=== PATIENT | male | born 1970 | race Two or more races ===

== ENCOUNTER 2018-05-22 17:06 | Inpatient (IN) | payer OTHER ==
[2018-05-22 17:30] VITALS: BMI 32.1
--- NOTE | 2018-05-22 18:41 | HP ---
"COWS - Scale Resting Pulse: 0= [place] 80 or Below Sweatin=Flushed/Facial Moisture Restless Observation: 1= Difficult to Sit Still Pupil Size: 2= Moderately Dilated (at 4 mm) Bone or Joint Aches: 1= Mild Discomfort Runny Nose/ Eye Tearin= Runny Nose/Eyes GI Upset > 30mins: 2= Nausea/Diarrhea (No diarrhea) Tremor Observation: 2= Slight Tremor Visible Yawning Observation: 0= None Anxiety or Irritability: 1=Feels Anxious/Irritable Goose Flesh Skin: 0=Smooth Skin COWS Score: 13 Admission [facility] Chief Complaint: Here for c/o heroin withdrawal. Allergies/Adverse Reactions: Allergies Allergy/AdvReac Type Severity Reaction Status Date / Time No Known Allergies Allergy Verified 06/09/12 15:02 History of Present Illness: 48 yom w/ hx heroin dependency since age 15. Has been using heroin IV. States had only 1 swig of methadone 3 days ago and is not on an opioid tx. program. Last methadone program 10 years ago. Hx. cocaine use since age 15. Currently uses cocaine IV w/ the heroin. States THC since age 13. Denies benzo use. Hx 3 overdoses in 90's. Denies anything recent. Drinks beer since age 17. States not a big drinker and denies an alcohol problem. Denies any blackouts or seizures. Has been able to maintain 1-2 yrs of sobriety in . Wants to go to rehab after detox. Denies significant pmh. Hx depression but denies thoughts of harming self or others. Search Terms: Domenic Nair, 1970 Search Date: 05/22/2018 06:57:38 PM The Drug Utilization Report below displays all of the controlled substance prescriptions, if any, that your patient has filled in the last twelve months. The information displayed on this report is compiled from pharmacy submissions to the Department, and accurately reflects the information as submitted by the pharmacies. This report was requested by: Adela Benitez | Reference #: [id number] There are no results for the search terms that you entered. Exam Limitations: No Limitations - Ebola screening Have you traveled outside of the country in the last 21 days: No Have you had contact with anyone from an Ebola affected area: No Have you been sick,other than usual withdrawal symptoms: No Do you have a fever: No - Review of Systems Constitutional: Changes in sleep (Difficulty staying asleep) EENT: reports: Nose Congestion Respiratory: reports: No Symptoms reported Cardiac: reports: No Symptoms Reported GI: reports: Constipated (Firm and brown, not associated w/ blood. Can have a delayed BM every 2-3 days. Last BM yesterday.) : reports: No Symptoms Reported Musculoskeletal: reports: Back Pain (Chronic LBP x 2 years. States increases w/ bending and improves w/ rest/laying down.) Integumentary: reports: Sweating Neuro: reports: No Symptoms reported Endocrine: reports: No Symptoms Reported Hematology: reports: No Symptoms Reported Psychiatric: reports: Judgement Intact, Orientated x3, Agitated, Anxious, Depressed (Denies thoughts of harming self) Patient History - Patient Medical History Hx Anemia: No Hx Asthma: No Hx Chronic Obstructive Pulmonary Disease (COPD): No Hx Cancer: No Hx Cardiac Disorders: No Hx Congestive Heart Failure: No Hx Hypertension: No Hx Hypercholesterolemia: No Hx Pacemaker: No HX Cerebrovascular Accident: No Hx Seizures: No Hx Dementia: No Hx Diabetes: No Hx Gastrointestinal Disorders: No Hx Liver Disease: No Hx Genitourinary Disorders: No Hx Sexually Transmitted Disorders: No Hx Renal Disease (ESRD): No Hx Thyroid Disease: No Hx Human Immunodeficiency Virus (HIV): No Hx Hepatitis C: Yes (No medical tx. ) Hx Depression: Yes (Denies suicide or violent ideation. No meds. ) Hx Suicide Attempt: No Hx Bipolar Disorder: No Hx Schizophrenia: No - Patient Surgical History Past Surgical History: No Hx Neurologic Surgery: No Hx Cataract Extraction: No Hx Cardiac Surgery: No Hx Lung Surgery: No Hx Breast Surgery: No Hx Breast Biopsy: No Hx Abdominal Surgery: No Hx Appendectomy: No Hx Cholecystectomy: No Hx Genitourinary Surgery: No Hx Section: No Hx Orthopedic Surgery: No Anesthesia Reaction: No - PPD History Previous Implant?: Yes Documented Results: Negative w/o proof Implanted On Prior [facility] Admission?: Yes PPD to be Administered?: Yes - Smoking Cessation Smoking history: Current every day smoker Have you smoked in the past 12 months: Yes Aproximately how many cigarettes per day: 10 Hx Chewing Tobacco Use: No Initiated information on smoking cessation: Yes 'Breaking Loose' booklet given: 05/22/18 - Substance & Tx. History Hx Alcohol Use: Yes - Substances Abused Heroin Route: Injection (IV) Frequency: Daily Amount used: 5-6 bags Age of first use: 15 Date of Last Use: 05/22/18 Cocaine Route: Injection (IV w/ heroin) Frequency: Daily Amount used: $100 Age of first use: 15 Date of Last Use: 05/22/18 Marijuana/Hashish Route: Smoking Frequency: Daily Amount used: $10 Age of first use: 13 Date of Last Use: 05/20/18 Alcohol Route: Oral Frequency: 3-6 times per week Amount used: 3 - 24 oz beers Age of first use: 16 Date of Last Use: 05/21/18 ( 2 beers) Family Disease History - Family Disease History Family History: Unremarkable Admission Physical Exam [facility] - Vital Signs Vital Signs: Vital Signs - 24 hr 05/22/18 17:26 Temperature 98.9 F Pulse Rate 74 Respiratory 18 Rate Blood Pressure 137/94 - Physical General Appearance: Yes: Mild Distress, Tremorous, Irritable, Anxious HEENTM: Yes: EOMI, Hearing grossly Normal, Normocephalic, Normal Voice, [place] (P = 4 mm), Rhinorrhea (Clear drip) Respiratory: Yes: Chest Non-Tender, Lungs Clear, Normal Breath Sounds, No Respiratory Distress Neck: Yes: No masses,lesions,Nodules, Supple Breast: Yes: Breast Exam Deferred Cardiology: Yes: Regular Rhythm, Regular Rate, S1, S2 Abdominal: Yes: Normal Bowel Sounds, Non Tender, Flat, Soft Genitourinary: Yes: Within Normal Limits Back: Yes: Normal Inspection Musculoskeletal: Yes: full range of Motion, Gait Steady Extremities: Yes: Normal Capillary Refill, Normal Range of Motion, Non-Tender, Tremors (of hands on extension), Swelling (BLE edema - mild ankles to mid-calf. 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 No increased warmth or erythema at sites.) - Diagnostic (1) Opioid dependence with withdrawal Current Visit: Yes Status: Acute (2) Bilateral edema of lower extremity Current Visit: Yes Status: Acute (3) Nicotine dependence with withdrawal Current Visit: Yes Status: Acute Qualifiers: Nicotine product type: cigarettes Qualified Code(s): F17.213 - Nicotine dependence, cigarettes, with withdrawal (4) Cannabis dependence Current Visit: Yes Status: Chronic (5) Alcohol use disorder, mild, abuse Current Visit: Yes Status: Chronic (6) Cocaine dependence Current Visit: Yes Status: Active (7) Low back pain Current Visit: Yes Status: Chronic Qualifiers: Chronicity: chronic Back pain laterality: unspecified Sciatica presence: without sciatica Qualified Code(s): M54.5 - Low back pain; G89.29 - Other chronic pain Cleared for Admission [facility] - Detox or Rehab Detox Regimen/Protocol: Methadone [facility] Breath Alcohol Content Breath Alcohol Content: 0 Urine Drug Screen - Results Drug Screen Negative: No Urine Drug Screen Results: THC-Marijuana, JOSELITO-Cocaine, OPI-Opiates, BZO- Benzodiazepines, MTD-Methadone"
[2018-05-22] MEDS ORDERED: ACETAMINOPHEN 325 MG TABLET (FP) PO PRN (19:10)
[2018-05-22] MEDS ORDERED: MENTHOL/PHENOL 1 EACH UD MM PRN (19:10)
[2018-05-22] MEDS ORDERED: MAG HYDROX/AL HYDROX/SIMETH 30 ML UNIT-DOSE CUP PO PRN (19:10)
[2018-05-22] MEDS ORDERED: guaiFENesin/D-METHORPHAN HB 10 ML UNIT-DOSE CUPS PO PRN (19:10)
[2018-05-22] MEDS ORDERED: P-EPHED 60MG/TRIPROLIDI 2.5MG TABLET PO PRN (19:10)
[2018-05-22] MEDS ORDERED: MAGNESIUM CITRATE 300 ML BOTTLE PO PRN (19:10)
[2018-05-22] MEDS ORDERED: LOPERAMIDE HCL 2 MG CAPSULE PO PRN (19:10)
[2018-05-22] MEDS ORDERED: hydrOXYzine PAMOATE 50 MG CAPSULE (FP) PO PRN (19:10)
[2018-05-22] MEDS ORDERED: MAGNESIUM HYDROX 2400MG/30ML ORAL SUSPENSION 30 ML CUP PO PRN (19:10)
[2018-05-22] MEDS ORDERED: IBUPROFEN 400 MG TABLET (FP) PO PRN (19:10)
[2018-05-22] MEDS ORDERED: NICOTINE POLACRILEX 2 MG GUM BUC PRN (19:10)
[2018-05-22] MEDS ORDERED: METHADONE HCL 10 MG TABLET (FOR DETOX USE ONLY) PO ONE ×2 (19:30→23:00)
[2018-05-22] MEDS: diazePAM 5 MG TABLET PO PRN (19:46)
[2018-05-22] MEDS: THIAMINE HCL 100 MG TABLET (FP) PO SCH (22:18)
[2018-05-22] MEDS: MELATONIN 5 MG TABLETS PO PRN (22:19)
[2018-05-23 00:05] LABS: URINE APPEARANCE CLEAR; URINE BILIRUBIN NEGATIVE (<2.0 mg/dL); URINE COLOR AMBER; URINE GLUCOSE (UA) NEGATIVE (NEGATIVE); URINE KETONE NEGATIVE (NEGATIVE); URINE LEUK ESTERASE NEGATIVE (NEGATIVE); URINE NITRITE NEGATIVE (NEGATIVE); URINE PROTEIN NEGATIVE (NEGATIVE); URINE UROBILINOGEN 4.0 E.U/dl mg/dL (0.2-1.0)
[2018-05-23] MEDS ORDERED: METHADONE HCL 10 MG TABLET (FOR DETOX USE ONLY) PO ONE (10:00)
[2018-05-23 10:08] LABS: HEMOGLOBIN 13.8 GM/dL (11.7-16.9); MCH 32.4 pg (25.7-33.7); MCHC 35.4 g/dl (32.0-35.9); MEAN CELL VOLUME 91.6 fl (80-96); MEAN PLT VOLUME 9.6 fl (7.5-11.1); PLATELET COUNT 78 K/MM3 (134-434); RBC 4.25 M/mm3 (4.00-5.60); RDW 13.5 % (11.9-15.9); WHITE BLOOD COUNT 3.3 K/mm3 (4.0-10.0)
[2018-05-23] MEDS: PRENATAL VITAMINS W/ FOLIC ACID TABLET (FP) PO SCH (10:17)
[2018-05-23] MEDS: NICOTINE 21 MG/24 HOURS TOPICAL PATCH TD SCH (10:17)
[2018-05-23 10:48] LABS: ALBUMIN 3.1 g/dl (3.4-5.0); ANION GAP 7 (8-16); BLOOD UREA NITROGEN 12 mg/dL (7-18); CALCIUM 8.3 mg/dL (8.5-10.1); CHLORIDE 105 mmol/L (98-107); CO2 27 mmol/L (21-32); GLUCOSE,RANDOM 90 mg/dL (74-106); POTASSIUM 3.8 mmol/L (3.5-5.1); SODIUM 139 mmol/L (136-145)
[2018-05-23 10:55] LABS: ALK PHOS 80 U/L (45-117); BILIRUBIN,TOTAL 1.1 mg/dL (0.2-1.0); CREATININE 0.7 mg/dL (0.7-1.3); SGOT/AST 84 U/L (15-37); SGPT/ALT 74 U/L (12-78)
--- NOTE | 2018-05-23 12:08 | EKG ---
Test Reason : Blood Pressure : / mmHG Vent. Rate : 062 BPM Atrial Rate : 062 BPM P-R Int : 144 ms QRS Dur : 092 ms QT Int : 436 ms P-R-T Axes : 023 -21 001 degrees QTc Int : 442 ms NORMAL SINUS RHYTHM MODERATE VOLTAGE CRITERIA FOR LVH, MAY BE NORMAL VARIANT BORDERLINE ECG Confirmed by MD KYLEE, DANGELO ([id number]) on 05/23/2018 12:08:24 PM Referred By: Confirmed By:DANGELO PICHARDO MD
--- NOTE | 2018-05-23 12:09 | EKG ---
Test Reason : Blood Pressure : / mmHG Vent. Rate : 064 BPM Atrial Rate : 064 BPM P-R Int : 142 ms QRS Dur : 086 ms QT Int : 416 ms P-R-T Axes : 007 -20 015 degrees QTc Int : 429 ms NORMAL SINUS RHYTHM VOLTAGE CRITERIA FOR LEFT VENTRICULAR HYPERTROPHY CANNOT RULE OUT SEPTAL INFARCT , AGE UNDETERMINED ABNORMAL ECG Confirmed by MD KYLEE, DANGELO ([id number]) on 05/23/2018 12:09:05 PM Referred By: Confirmed By:DANGELO PICHARDO MD
--- NOTE | 2018-05-23 12:11 | PN ---
[facility] COWS - Scale Resting Pulse: 0= [place] 80 or Below Sweatin= Chills/Flushing Restless Observation: 3= Extraneous Movement Pupil Size: 2= Moderately Dilated Bone or Joint Aches: 1= Mild Discomfort Runny Nose/ Eye Tearin= None GI Upset > 30mins: 0= None Tremor Observation of Outstretched Hands: 1= Tremor [place], Not Seen Yawning Observation: 2= >3x During Session Anxiety or Irritability: 2=Irritable/Anxious Goose Flesh Skin: 0=Smooth Skin COWS Score: 12 S Progress Note (SOAP) Subjective: ANXIETY.IRRITABILITY,INTERMITTENT SLEEP. Objective: 05/23/18 12:11 Vital Signs 05/23/18 05/23/18 05/23/18 06:11 06:30 09:28 Temperature 97.5 F L 97.3 F L Pulse Rate 61 62 Respiratory 18 18 18 Rate Blood Pressure 106/62 105/66 Laboratory Tests 05/22/18 05/23/18 05/23/18 23:50 07:15 07:15 WBC 3.3 L RBC 4.25 Hgb 13.8 Hct 39.0 MCV 91.6 MCH 32.4 MCHC 35.4 RDW 13.5 Plt Count 78 L MPV 9.6 Sodium 139 Potassium 3.8 Chloride 105 Carbon Dioxide 27 Anion Gap 7 L BUN 12 Creatinine 0.7 Creat Clearance w eGFR > 60 Random Glucose 90 Calcium 8.3 L Total Bilirubin 1.1 H AST 84 H ALT 74 D Alkaline Phosphatase 80 Total Protein 7.0 Albumin 3.1 L Urine Color Cherry Urine Appearance Clear Urine pH 6.0 Ur Specific [place] [employer] [place] 1.023 Urine Protein Negative Urine Glucose (UA) Negative Urine Ketones Negative Urine Blood Negative Urine Nitrite Negative Urine Bilirubin Negative Urine Urobilinogen 4.0 e.u/dl Ur Leukocyte Esterase Negative Assessment: 05/23/18 12:11 WITHDRAWAL SX Plan: CONTINUE DETOX
--- NOTE | 2018-05-23 18:27 | CONSULT ---
[facility] Psychiatric Consult - Data Date of interview: 05/23/18 Admission source: [facility] Identifying data: Readmission to [facility] for this 48 y/o male seeking detox treatment on for alcohol,cannabis,heroin and cocaine dependence.Patient is single,a father of one,undomiciled,unemployed and currently supported on Public Assistance. Substance Abuse History: Confirmed by patient in this session.Smoking history: Current every day smoker. Have you smoked in the past 12 months: Yes. Aproximately how many cigarettes per day: 10. Hx Chewing Tobacco Use: No. Initiated information on smoking cessation: Yes. 'Breaking Loose' booklet given : 05/22/18. - Substance & Tx. History. Hx Alcohol Use: Yes. - Substances Abused. Heroin. Route: Injection (IV). Frequency: Daily. Amount used: 5- 6 bags. Age of first use: 15. Date of Last Use: 05/22/18. Cocaine. Route : Injection (IV w/ heroin). Frequency: Daily. Amount used: $100. Age of first use: 15. Date of Last Use: 05/22/18. Marijuana/Hashish. Route: Smoking. Frequency: Daily. Amount used: $10. Age of first use: 13. Date of Last Use: 05/20/18. Alcohol. Route: Oral. Frequency: 3-6 times per week. Amount used: 3 - 24 oz beers. Age of first use: 16. Date of Last Use: ( 2 beers) Medical History: Hepatitis C and chronic lumbar pain. Psychiatric History: Patient denies. Physical/Sexual Abuse/Trauma History: No reported history of abuse. Additional Comment: Urine Drug Screen Results: THC-Marijuana, JOSELITO-Cocaine, OPI- Opiates, BZO-Benzodiazepines, MTD-Methadone.Noted. Mental Status Exam - Mental Status Exam Alert and Oriented to: Time, Place, Person Cognitive Function: Good Patient Appearance: Well Groomed (tattoos on arms) Mood: Hopeful, Euthymic Affect: Appropriate, Normal Range Patient Behavior: Appropriate, Cooperative Speech Pattern: Clear, Appropriate Voice Loudness: Normal Thought Process: Intact, Goal Oriented Thought Disorder: Not Present Hallucinations: Denies Suicidal Ideation: Denies Homicidal Ideation: Denies Insight/Judgement: Poor Sleep: Well Appetite: Good Muscle strength/Tone: Normal Gait/Station: Normal Psychiatric Findings - Problem List ([place] 1, 2,3) (1) Opioid dependence with withdrawal Current Visit: Yes Status: Acute (2) Alcohol use disorder, mild, abuse Current Visit: Yes Status: Acute (3) Cocaine dependence Current Visit: Yes Status: Active (4) Cannabis dependence Current Visit: Yes Status: Acute (5) Nicotine dependence with withdrawal Current Visit: Yes Status: Acute Qualifiers: Nicotine product type: cigarettes Qualified Code(s): F17.213 - Nicotine dependence, cigarettes, with withdrawal (6) Insomnia Current Visit: Yes Status: Acute - Initial Treatment Plan Initial Treatment Plan: Psychoeducation.Sleep hygiene.Detoxification.Insomnia is addressed with melatonin 5 mg po hs prn.Side effects/benefits discussed with the patient.Mr Nair agrees to this careplan.Observation.
[2018-05-23] MEDS: diazePAM 5 MG TABLET PO PRN (18:43)
[2018-05-23] MEDS: THIAMINE HCL 100 MG TABLET (FP) PO SCH (22:19)
[2018-05-23] MEDS: MELATONIN 5 MG TABLETS PO PRN (22:19)
[2018-05-24] MEDS ORDERED: METHADONE HCL 5 MG TABLET (FOR DETOX USE ONLY) PO ONE (10:00)
[2018-05-24] MEDS: diazePAM 5 MG TABLET PO PRN ×2 (10:22→21:24)
[2018-05-24] MEDS: PRENATAL VITAMINS W/ FOLIC ACID TABLET (FP) PO SCH (10:22)
[2018-05-24] MEDS: NICOTINE 21 MG/24 HOURS TOPICAL PATCH TD SCH (10:22)
--- NOTE | 2018-05-24 10:35 | PN ---
S COWS - Scale Resting Pulse: 0= [place] 80 or Below Sweatin= Chills/Flushing Restless Observation: 3= Extraneous Movement Pupil Size: 0= Normal to Room Light Bone or Joint Aches: 4=Acute Joint/Muscle Pain Runny Nose/ Eye Tearin= None GI Upset > 30mins: 0= None Tremor Observation of Outstretched Hands: 1= Tremor [place], Not Seen Yawning Observation: 1= 1-2x During Session Anxiety or Irritability: 2=Irritable/Anxious Goose Flesh Skin: 0=Smooth Skin COWS Score: 12 S Progress Note (SOAP) Subjective: ANXIETY, SWEATS,BACK ACHE. STATES WILL ASK FOR MOTRIN WHEN NEEDED. Objective: 05/24/18 10:34 Vital Signs 05/24/18 05/24/18 05/24/18 03:30 06:12 09:30 Temperature 97 F L 97.1 F L Pulse Rate 56 L 66 Respiratory 18 18 20 Rate Blood Pressure 104/59 128/90 Laboratory Tests 05/22/18 05/23/18 05/23/18 23:50 07:15 07:15 WBC 3.3 L RBC 4.25 Hgb 13.8 Hct 39.0 MCV 91.6 MCH 32.4 MCHC 35.4 RDW 13.5 Plt Count 78 L MPV 9.6 Sodium 139 Potassium 3.8 Chloride 105 Carbon Dioxide 27 Anion Gap 7 L BUN 12 Creatinine 0.7 Creat Clearance w eGFR > 60 Random Glucose 90 Calcium 8.3 L Total Bilirubin 1.1 H AST 84 H ALT 74 D Alkaline Phosphatase 80 Total Protein 7.0 Albumin 3.1 L Urine Color Cherry Urine Appearance Clear Urine pH 6.0 Ur Specific [place] 1.023 Urine Protein Negative Urine Glucose (UA) Negative Urine Ketones Negative Urine Blood Negative Urine Nitrite Negative Urine Bilirubin Negative Urine Urobilinogen 4.0 e.u/dl Ur Leukocyte Esterase Negative Assessment: 05/24/18 10:34 WITHDRAWAL SX Plan: CONTINUE DETOX MOTRIN OR TYLENOL PRN
[2018-05-24] MEDS: MELATONIN 5 MG TABLETS PO PRN (22:24)
[2018-05-24] MEDS: THIAMINE HCL 100 MG TABLET (FP) PO SCH (22:24)
[2018-05-25] MEDS: diazePAM 5 MG TABLET PO PRN ×2 (09:22→17:21)
[2018-05-25] MEDS ORDERED: METHADONE HCL 5 MG TABLET (FOR DETOX USE ONLY) PO ONE (10:00)
[2018-05-25] MEDS: PRENATAL VITAMINS W/ FOLIC ACID TABLET (FP) PO SCH (10:33)
[2018-05-25] MEDS: NICOTINE 21 MG/24 HOURS TOPICAL PATCH TD SCH (10:34)
--- NOTE | 2018-05-25 10:54 | PN ---
[facility] Progress Note (SOAP) Subjective: SLIGHT ANXIETY, BACK PAIN, OOB AMBULATING WITH STEADY GAIT. Objective: 05/25/18 10:53 Vital Signs 05/25/18 05/25/18 05/25/18 03:30 06:20 09:36 Temperature 97.7 F 97.7 F Pulse Rate 56 L 72 Respiratory 18 18 18 Rate Blood Pressure 106/65 132/87 Laboratory Tests 05/22/18 05/23/18 05/23/18 23:50 07:15 07:15 WBC 3.3 L RBC 4.25 Hgb 13.8 Hct 39.0 MCV 91.6 MCH 32.4 MCHC 35.4 RDW 13.5 Plt Count 78 L MPV 9.6 Sodium 139 Potassium 3.8 Chloride 105 Carbon Dioxide 27 Anion Gap 7 L BUN 12 Creatinine 0.7 Creat Clearance w eGFR > 60 Random Glucose 90 Calcium 8.3 L Total Bilirubin 1.1 H AST 84 H ALT 74 D Alkaline Phosphatase 80 Total Protein 7.0 Albumin 3.1 L Urine Color Cherry Urine Appearance Clear Urine pH 6.0 Ur Specific [place] 1.023 Urine Protein Negative Urine Glucose (UA) Negative Urine Ketones Negative Urine Blood Negative Urine Nitrite Negative Urine Bilirubin Negative Urine Urobilinogen 4.0 e.u/dl Ur Leukocyte Esterase Negative RPR Titer 05/23/18 07:15 WBC RBC Hgb Hct MCV MCH MCHC RDW Plt Count MPV Sodium Potassium Chloride Carbon Dioxide Anion Gap BUN Creatinine Creat Clearance w eGFR Random Glucose Calcium Total Bilirubin AST ALT Alkaline Phosphatase Total Protein Albumin Urine Color Urine Appearance Urine pH Ur Specific [place] Urine Protein Urine Glucose (UA) Urine Ketones Urine Blood Urine Nitrite Urine Bilirubin Urine Urobilinogen Ur Leukocyte Esterase RPR Titer Nonreactive Assessment: 05/25/18 10:53 WITHDRAWAL SX Plan: CONTINUE DETOX MOTRIN PRN
[2018-05-25] MEDS: THIAMINE HCL 100 MG TABLET (FP) PO SCH (22:20)
[2018-05-25] MEDS: MELATONIN 5 MG TABLETS PO PRN (22:20)
[2018-05-26] MEDS ORDERED: METHADONE HCL 10 MG TABLET (FOR DETOX USE ONLY) PO ONE (10:00)
[2018-05-26] MEDS: PRENATAL VITAMINS W/ FOLIC ACID TABLET (FP) PO SCH (10:26)
[2018-05-26] MEDS: NICOTINE 21 MG/24 HOURS TOPICAL PATCH TD SCH (10:26)
--- NOTE | 2018-05-26 12:39 | PN ---
[facility] Progress Note (SOAP) Subjective: SLIGHT ANXIETY,SWEATS. REPORTS DETOX PROCEEDING WELL, OOB WITH STEADY GAIT. Objective: 05/26/18 12:38 Vital Signs 05/26/18 05/26/18 06:30 09:51 Temperature 97.0 F L 97.9 F Pulse Rate 65 67 Respiratory 18 18 Rate Blood Pressure 115/77 129/85 Laboratory Tests 05/22/18 05/23/18 05/23/18 23:50 07:15 07:15 WBC 3.3 L RBC 4.25 Hgb 13.8 Hct 39.0 MCV 91.6 MCH 32.4 MCHC 35.4 RDW 13.5 Plt Count 78 L MPV 9.6 Sodium 139 Potassium 3.8 Chloride 105 Carbon Dioxide 27 Anion Gap 7 L BUN 12 Creatinine 0.7 Creat Clearance w eGFR > 60 Random Glucose 90 Calcium 8.3 L Total Bilirubin 1.1 H AST 84 H ALT 74 D Alkaline Phosphatase 80 Total Protein 7.0 Albumin 3.1 L Urine Color Cherry Urine Appearance Clear Urine pH 6.0 Ur Specific [place] 1.023 Urine Protein Negative Urine Glucose (UA) Negative Urine Ketones Negative Urine Blood Negative Urine Nitrite Negative Urine Bilirubin Negative Urine Urobilinogen 4.0 e.u/dl Ur Leukocyte Esterase Negative RPR Titer 05/23/18 07:15 WBC RBC Hgb Hct MCV MCH MCHC RDW Plt Count MPV Sodium Potassium Chloride Carbon Dioxide Anion Gap BUN Creatinine Creat Clearance w eGFR Random Glucose Calcium Total Bilirubin AST ALT Alkaline Phosphatase Total Protein Albumin Urine Color Urine Appearance Urine pH Ur Specific [place] Urine Protein Urine Glucose (UA) Urine Ketones Urine Blood Urine Nitrite Urine Bilirubin Urine Urobilinogen Ur Leukocyte Esterase RPR Titer Nonreactive Assessment: 05/26/18 12:39 WITHDRAWAL SX Plan: CONTINUE DETOX
[2018-05-26] MEDS: THIAMINE HCL 100 MG TABLET (FP) PO SCH (22:15)
[2018-05-26] MEDS: MELATONIN 5 MG TABLETS PO PRN (22:15)
[2018-05-27] MEDS ORDERED: METHADONE HCL 5 MG TABLET (FOR DETOX USE ONLY) PO ONE (06:00)
[2018-05-27 06:18] VITALS: BP 118/75; PULSE 59; TEMP 97.1
--- NOTE | 2018-05-27 19:49 | PN ---
[facility] Progress Note (SOAP) Subjective: Patient denies current Detox symptoms and reports that he feels well overall. Objective: PATIENT A & O X 3, OBSERVED AMBULATING ON UNIT. NO ACUTE DISTRESS. 05/27/18 19:49 Vital Signs Temperature 97.1 F L 05/27/18 06:18 Pulse Rate 59 L 05/27/18 06:18 Respiratory Rate 18 05/27/18 06:18 Blood Pressure 118/75 05/27/18 06:18 O2 Sat by Pulse Oximetry (%) Laboratory Tests 05/22/18 05/23/18 05/23/18 23:50 07:15 07:15 WBC 3.3 L RBC 4.25 Hgb 13.8 Hct 39.0 MCV 91.6 MCH 32.4 MCHC 35.4 RDW 13.5 Plt Count 78 L MPV 9.6 Sodium 139 Potassium 3.8 Chloride 105 Carbon Dioxide 27 Anion Gap 7 L BUN 12 Creatinine 0.7 Creat Clearance w eGFR > 60 Random Glucose 90 Calcium 8.3 L Total Bilirubin 1.1 H AST 84 H ALT 74 D Alkaline Phosphatase 80 Total Protein 7.0 Albumin 3.1 L Urine Color [place] Urine Appearance Clear Urine pH 6.0 Ur Specific [place] 1.023 Urine Protein Negative Urine Glucose (UA) Negative Urine Ketones Negative Urine Blood Negative Urine Nitrite Negative Urine Bilirubin Negative Urine Urobilinogen 4.0 e.u/dl Ur Leukocyte Esterase Negative RPR Titer 05/23/18 07:15 WBC RBC Hgb Hct MCV MCH MCHC RDW Plt Count MPV Sodium Potassium Chloride Carbon Dioxide Anion Gap BUN Creatinine Creat Clearance w eGFR Random Glucose Calcium Total Bilirubin AST ALT Alkaline Phosphatase Total Protein Albumin Urine Color Urine Appearance Urine pH Ur Specific [place] Urine Protein Urine Glucose (UA) Urine Ketones Urine Blood Urine Nitrite Urine Bilirubin Urine Urobilinogen Ur Leukocyte Esterase RPR Titer Nonreactive LABS NOTED. Assessment: 05/27/18 19:49 COMPLETION OF DETOX REGIMEN. Plan: PATIENT SCHEDULED FOR DISCHARGE FROM DETOX UNIT TODAY.
--- NOTE | 2018-05-27 19:53 | DS ---
[facility] Detox Discharge Summary Admission Date: 05/22/18 Discharge Date: 05/27/18 - History Present History: Alcohol Dependence, Cocaine Dependence, Opioid Dependence Additional Comments: PATIENT GONIG TO [facility] (DAVID NOdilia) FOR AFTERCARE. PATIENT DISCHARGED FROM DETOX UNIT IN STABLE MEDICAL CONDITION. Pertinent Past History: Hep C, Depression, Nicotine Dependence, Bilateral Edema of Lower Extremities, Insomnia. - Physical Exam Results Vital Signs: Vital Signs Temperature 97.1 F L 05/27/18 06:18 Pulse Rate 59 L 05/27/18 06:18 Respiratory Rate 18 05/27/18 06:18 Blood Pressure 118/75 05/27/18 06:18 O2 Sat by Pulse Oximetry (%) Pertinent Admission Physical Exam Findings: WITHDRAWAL SYMPTOMS. Laboratory Tests 05/22/18 05/23/18 05/23/18 23:50 07:15 07:15 WBC 3.3 L RBC 4.25 Hgb 13.8 Hct 39.0 MCV 91.6 MCH 32.4 MCHC 35.4 RDW 13.5 Plt Count 78 L MPV 9.6 Sodium 139 Potassium 3.8 Chloride 105 Carbon Dioxide 27 Anion Gap 7 L BUN 12 Creatinine 0.7 Creat Clearance w eGFR > 60 Random Glucose 90 Calcium 8.3 L Total Bilirubin 1.1 H AST 84 H ALT 74 D Alkaline Phosphatase 80 Total Protein 7.0 Albumin 3.1 L Urine Color [place] Urine Appearance Clear Urine pH 6.0 Ur Specific [place] 1.023 Urine Protein Negative Urine Glucose (UA) Negative Urine Ketones Negative Urine Blood Negative Urine Nitrite Negative Urine Bilirubin Negative Urine Urobilinogen 4.0 e.u/dl Ur Leukocyte Esterase Negative RPR Titer 05/23/18 07:15 WBC RBC Hgb Hct MCV MCH MCHC RDW Plt Count MPV Sodium Potassium Chloride Carbon Dioxide Anion Gap BUN Creatinine Creat Clearance w eGFR Random Glucose Calcium Total Bilirubin AST ALT Alkaline Phosphatase Total Protein Albumin Urine Color Urine Appearance Urine pH Ur Specific [place] Urine Protein Urine Glucose (UA) Urine Ketones Urine Blood Urine Nitrite Urine Bilirubin Urine Urobilinogen Ur Leukocyte Esterase RPR Titer Nonreactive LABS NOTED. - Treatment Hospital Course: Detox Protocol Followed, Detoxed Safely, Responded well, Discharged Condition Good, Rehab Referral Accepted Patient has Accepted a Rehab Referral to: [facility] (DA[facility] NOdilia). - Medication Discharge Medications: Ambulatory Orders NK [No Known Home Medication] 05/22/18 - Diagnosis (1) Alcohol use disorder, mild, abuse Status: Acute (2) Bilateral edema of lower extremity Status: Acute (3) Cocaine dependence, uncomplicated Status: Acute (4) Hepatitis C carrier Status: Acute (5) Nicotine dependence with withdrawal Status: Acute Qualifiers: Nicotine product type: cigarettes Qualified Code(s): F17.213 - Nicotine dependence, cigarettes, with withdrawal (6) Opioid dependence with withdrawal Status: Acute (7) Low back pain Status: Chronic Qualifiers: Chronicity: chronic Back pain laterality: unspecified Sciatica presence: without sciatica Qualified Code(s): M54.5 - Low back pain; G89.29 - Other chronic pain (8) Cannabis dependence Status: Acute (9) Insomnia Status: Acute Qualifiers: Insomnia type: unspecified Qualified Code(s): G47.00 - Insomnia, unspecified - AMA Did Patient Leave Against Medical Advice: No
== END 2018-05-27 09:14 | disposition other institution (70) | DRG 773 ==
LOC: YASAS 17:06 → Y3N 18:09
PROVIDERS: ADMIT Surgery; ATTEND Surgery
PROC: HZ2ZZZZ Detoxification Services for Substance Abuse Treatment (ICD-10-PCS; principal; 2018-05-22)
DX: F11.23 Opioid dependence with withdrawal (principal); F10.10 Alcohol abuse, uncomplicated; F14.20 Cocaine dependence, uncomplicated; F12.20 Cannabis dependence, uncomplicated; F17.213 Nicotine dependence, cigarettes, with withdrawal; F32.9 Major depressive disorder, single episode, unspecified; G47.00 Insomnia, unspecified; M54.5 Low back pain; G89.29 Other chronic pain; B18.2 Chronic viral hepatitis C; R60.0 Localized edema
CPT/HCPCS: 36415; 80053; 81003; 85027; 86593; 93005; 93010

== ENCOUNTER 2018-07-10 10:23 | Inpatient (IN) | payer OTHER ==
[2018-07-10 10:48] VITALS: BMI 30.5
--- NOTE | 2018-07-10 13:49 | HP ---
COWS - Scale Resting Pulse: 0= [place] 80 or Below Sweatin=Flushed/Facial Moisture Restless Observation: 1= Difficult to Sit Still Pupil Size: 1= Pupils >than Normal Bone or Joint Aches: 2= Severe Diffuse Aches Runny Nose/ Eye Tearin= Nasal Congestion GI Upset > 30mins: 1= Stomach Cramp Tremor Observation: 1= Tremor [place], Not Seen Yawning Observation: 1= 1-2x During Session Anxiety or Irritability: 1=Feels Anxious/Irritable Goose Flesh Skin: 0=Smooth Skin COWS Score: 11 Admission ROS BHS - HPI Chief Complaint: I need to stop using heroin , relapsed recently and want to stop. Allergies/Adverse Reactions: Allergies Allergy/AdvReac Type Severity Reaction Status Date / Time No Known Allergies Allergy Verified 07/10/18 13:19 History of Present Illness: 48 y/o m pt wth h/o opioid dep since age 15 . Pt was drug free x 7 years until 2 months ago when he relapse . Exam Limitations: No Limitations - Ebola screening Have you traveled outside of the country in the last 21 days: No (N) Have you had contact with anyone from an Ebola affected area: No Have you been sick,other than usual withdrawal symptoms: No Do you have a fever: No - Review of Systems Constitutional: Malaise, Changes in sleep, Unexplained wgt Loss (15 lbs wt loss) EENT: reports: No Symptoms Reported, Blurred Vision, Dental Problems (needs cleaning) Respiratory: reports: No Symptoms reported Cardiac: reports: No Symptoms Reported, See HPI GI: reports: No Symptoms Reported : reports: No Symptoms Reported Musculoskeletal: reports: Back Pain Integumentary: reports: Sweating Neuro: reports: Weakness Endocrine: reports: No Symptoms Reported Hematology: reports: No Symptoms Reported Psychiatric: reports: No Sypmtoms Reported Other Systems: Reviewed and Negative Patient History - Patient Medical History Hx Anemia: No Hx Asthma: No Hx Chronic Obstructive Pulmonary Disease (COPD): No Hx Cancer: No Hx Cardiac Disorders: No Hx Congestive Heart Failure: No Hx Hypertension: No Hx Hypercholesterolemia: No Hx Pacemaker: No HX Cerebrovascular Accident: No Hx Seizures: No Hx Dementia: No Hx Diabetes: No Hx Gastrointestinal Disorders: No Hx Liver Disease: No Hx Genitourinary Disorders: No Hx Sexually Transmitted Disorders: No Hx Renal Disease (ESRD): No Hx Thyroid Disease: No Hx Human Immunodeficiency Virus (HIV): No Hx Hepatitis C: Yes (No medical tx. ) Hx Depression: No Hx Suicide Attempt: No Hx Bipolar Disorder: No Hx Schizophrenia: No - Patient Surgical History Past Surgical History: No Hx Neurologic Surgery: No Hx Cataract Extraction: No Hx Cardiac Surgery: No Hx Lung Surgery: No Hx Breast Surgery: No Hx Breast Biopsy: No Hx Abdominal Surgery: No Hx Appendectomy: No Hx Cholecystectomy: No Hx Genitourinary Surgery: No Hx Section: No Hx Orthopedic Surgery: Yes (left wrist/forearm) Anesthesia Reaction: No - PPD History Previous Implant?: Yes Documented Results: Negative w/proof Implanted On Prior [facility] Admission?: Yes Date: 05/24/18 Results: 0MM PPD to be Administered?: No - Reproductive History Patient is a Female of Child Bearing Age (11 -55 yrs old): No - Smoking Cessation Smoking history: Current every day smoker Have you smoked in the past 12 months: Yes Aproximately how many cigarettes per day: 20 Hx Chewing Tobacco Use: No Initiated information on smoking cessation: Yes 'Breaking Loose' booklet given: 07/10/18 - Substance & Tx. History Hx Alcohol Use: No Hx Substance Use: Yes Substance Use Type: Cocaine, Heroin Hx Substance Use Treatment: Yes ([facility]) - Substances Abused Heroin Route: Injection Frequency: Daily Amount used: 15-20 BAGS Age of first use: 15 Date of Last Use: 07/09/18 Cocaine Route: Injection Frequency: Daily Amount used: 2 GRAMS Age of first use: 15 Date of Last Use: 07/09/18 Family Disease History - Family Disease History Family Disease History: Other: Mother (htn) Admission Physical Exam S - Vital Signs Vital Signs: Vital Signs - 24 hr 07/10/18 10:40 Temperature 97.5 F L Pulse Rate 64 Respiratory 19 Rate Blood Pressure 131/83 48 y/o m pt aox3in nad ambulating well ,cooperative with exam . - Physical General Appearance: Yes: Appropriately Dressed, Sweating, Anxious HEENTM: Yes: EOMI, Hearing grossly Normal, Normocephalic, Normal Voice, [place], Other (dicloration of upper incisors) Respiratory: Yes: Chest Non-Tender, Lungs Clear, Normal Breath Sounds, No Respiratory Distress, Rapid RR Neck: Yes: No masses,lesions,Nodules, Supple, Trachea in good position Breast: Yes: Within Normal Limits Cardiology: Yes: Regular Rhythm, Regular Rate, S1, S2 Abdominal: Yes: Non Tender, Flat, Soft, Increased Bowel Sounds Genitourinary: Yes: Within Normal Limits Back: Yes: Decreased Range of Motion Musculoskeletal: Yes: Back pain, Muscle Pain, Muscle weakness Extremities: Yes: Normal Range of Motion, Other (left wrist/forearm well healed scar) 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 intact, Fully Oriented, Alert, Motor Strength 5/5, Normal Mood/Affect Integumentary: Yes: Moist, Track [place] (cubital fossa manju) Lymphatic: Yes: Within Normal Limits Cleared for Admission [facility] - Detox or Rehab [facility] Level of Care: Medically Managed Detox Regimen/Protocol: Methadone [facility] Breath Alcohol Content Breath Alcohol Content: 0 Urine Drug Screen - Results Drug Screen Negative: No Urine Drug Screen Results: THC-Marijuana, JOSELITO-Cocaine, OPI-Opiates, BZO- Benzodiazepines, MTD-Methadone
[2018-07-10] MEDS ORDERED: ACETAMINOPHEN 325 MG TABLET (FP) PO PRN (14:11)
[2018-07-10] MEDS ORDERED: P-EPHED 60MG/TRIPROLIDI 2.5MG TABLET PO PRN (14:11)
[2018-07-10] MEDS ORDERED: LOPERAMIDE HCL 2 MG CAPSULE PO PRN (14:11)
[2018-07-10] MEDS ORDERED: MAGNESIUM CITRATE 300 ML BOTTLE PO PRN (14:11)
[2018-07-10] MEDS ORDERED: NICOTINE POLACRILEX 4 MG GUM BUC PRN (14:11)
[2018-07-10] MEDS ORDERED: guaiFENesin/D-METHORPHAN HB 10 ML UNIT-DOSE CUPS PO PRN (14:11)
[2018-07-10] MEDS ORDERED: MAGNESIUM HYDROX 2400MG/30ML ORAL SUSPENSION 30 ML CUP PO PRN (14:11)
[2018-07-10] MEDS ORDERED: MAG HYDROX/AL HYDROX/SIMETH 30 ML UNIT-DOSE CUP PO PRN (14:11)
[2018-07-10] MEDS ORDERED: MENTHOL/PHENOL 1 EACH UD MM PRN (14:11)
[2018-07-10] MEDS ORDERED: hydrOXYzine PAMOATE 25 MG CAPSULE (FP) PO PRN (14:11)
[2018-07-10] MEDS ORDERED: METHADONE HCL 10 MG TABLET (FOR DETOX USE ONLY) PO ONE ×2 (14:35→23:00)
[2018-07-10] MEDS: diazePAM 5 MG TABLET PO PRN ×2 (16:08→22:14)
[2018-07-10] MEDS: THIAMINE HCL 100 MG TABLET (FP) PO SCH (22:12)
[2018-07-10] MEDS: MELATONIN 5 MG TABLETS PO PRN (22:15)
[2018-07-11 02:07] LABS: URINE APPEARANCE CLEAR; URINE BILIRUBIN NEGATIVE (<2.0 mg/dL); URINE COLOR YELLOW; URINE GLUCOSE (UA) NEGATIVE (NEGATIVE); URINE KETONE NEGATIVE (NEGATIVE); URINE LEUK ESTERASE NEGATIVE (NEGATIVE); URINE NITRITE NEGATIVE (NEGATIVE); URINE PROTEIN NEGATIVE (NEGATIVE); URINE UROBILINOGEN NEGATIVE mg/dL (0.2-1.0)
--- NOTE | 2018-07-11 09:50 | EKG ---
Test Reason : Blood Pressure : / mmHG Vent. Rate : 055 BPM Atrial Rate : 055 BPM P-R Int : 134 ms QRS Dur : 088 ms QT Int : 460 ms P-R-T Axes : 012 -18 020 degrees QTc Int : 440 ms SINUS BRADYCARDIA MODERATE VOLTAGE CRITERIA FOR LVH, MAY BE NORMAL VARIANT BORDERLINE ECG WHEN COMPARED WITH ECG OF 23-MAY-2018 09:08, NO SIGNIFICANT CHANGE WAS FOUND Confirmed by Osmar Bolaños MD ([id number]) on 07/11/2018 9:49:43 AM Referred By: Confirmed By:Osmar Bolaños MD
[2018-07-11] MEDS ORDERED: METHADONE HCL 10 MG TABLET (FOR DETOX USE ONLY) PO ONE (10:00)
--- NOTE | 2018-07-11 10:09 | PN ---
S CIWA - CIWA Score Nausea/Vomitin Muscle Tremors: 3 Anxiety: 3 Agitation: 3 Paroxysmal Sweats: 1-Minimal Palms Moist Orientation: 0-Oriented Tacttile Disturbances: 1-Very Mild Itch/Numbness Auditory Disturbances: 1-Very Mild Visual Disturbances: 0-None Headache: 2-Mild CIWA-Ar Total Score: 17 BHS Progress Note (SOAP) Subjective: alert,irritable,anxious,interrupted sleep,tremor,pain in the body and back Objective: 07/11/18 10:06 Vital Signs Temperature 97.7 F 07/11/18 09:12 Pulse Rate 60 07/11/18 09:12 Respiratory Rate 18 07/11/18 09:12 Blood Pressure 129/76 07/11/18 09:12 O2 Sat by Pulse Oximetry (%) ekg sinus bradycardia,rate 55/min,inverted t in 3,lvh qt/qtc 460/440 no chest pain,no sob,no dizziness Laboratory Last Values Urine Color Yellow 07/10/18 23:00 Urine Appearance Clear 07/10/18 23:00 Urine pH 5.0 (5.0-8.0) 07/10/18 23:00 Ur Specific [place] 1.019 (1.001-1.035) 07/10/18 23:00 Urine Protein Negative (NEGATIVE) 07/10/18 23:00 Urine Glucose (UA) Negative (NEGATIVE) 07/10/18 23:00 Urine Ketones Negative (NEGATIVE) 07/10/18 23:00 Urine Blood Negative (NEGATIVE) 07/10/18 23:00 Urine Nitrite Negative (NEGATIVE) 07/10/18 23:00 Urine Bilirubin Negative (<2.0 mg/dL) 07/10/18 23:00 Urine Urobilinogen Negative mg/dL (0.2-1.0) 07/10/18 23:00 Ur Leukocyte Esterase Negative (NEGATIVE) 07/10/18 23:00 labs pending Assessment: 07/11/18 10:08 withdrawal symptom Plan: continue detox
[2018-07-11] MEDS ORDERED: CYCLOBENZAPRINE HCL 10 MG TABLET (FP) PO PRN (10:10)
[2018-07-11 10:44] LABS: HEMATOCRIT 38.4 % (35.4-49); HEMOGLOBIN 13.2 GM/dL (11.7-16.9); MCH 31.1 pg (25.7-33.7); MCHC 34.5 g/dl (32.0-35.9); MEAN CELL VOLUME 90.4 fl (80-96); PLATELET COUNT 66 K/MM3 (134-434); RBC 4.25 M/mm3 (4.00-5.60); RDW 14.1 % (11.9-15.9); WHITE BLOOD COUNT 5.2 K/mm3 (4.0-10.0)
[2018-07-11] MEDS: PRENATAL VITAMINS W/ FOLIC ACID TABLET (FP) PO SCH (10:46)
[2018-07-11] MEDS: NICOTINE 21 MG/24 HOURS TOPICAL PATCH TD SCH (10:46)
[2018-07-11 10:51] LABS: CHLORIDE 105 mmol/L (98-107); POTASSIUM 3.9 mmol/L (3.5-5.1); SODIUM 142 mmol/L (136-145)
[2018-07-11] MEDS: diazePAM 5 MG TABLET PO PRN ×2 (10:51→20:27)
[2018-07-11] MEDS: IBUPROFEN 400 MG TABLET (FP) PO PRN (10:53)
[2018-07-11 10:59] LABS: ALBUMIN 3.3 g/dl (3.4-5.0); ALK PHOS 73 U/L (45-117); ANION GAP 11 MMOL/L (8-16); BILIRUBIN,TOTAL 0.9 mg/dL (0.2-1.0); BLOOD UREA NITROGEN 14 mg/dL (7-18); CALCIUM 8.9 mg/dL (8.5-10.1); CO2 26 mmol/L (21-32); CREATININE 0.8 mg/dL (0.7-1.3); GLUCOSE,RANDOM 87 mg/dL (74-106); SGOT/AST 81 U/L (15-37); SGPT/ALT 73 U/L (12-78); TOT PROT 7.4 g/dl (6.4-8.2)
[2018-07-11] MEDS: THIAMINE HCL 100 MG TABLET (FP) PO SCH (21:59)
[2018-07-11] MEDS: MELATONIN 5 MG TABLETS PO PRN (21:59)
[2018-07-11] MEDS ORDERED: cloNIDine HCL 0.1 MG TABLET PO SCH (22:00)
[2018-07-12] MEDS ORDERED: METHADONE HCL 5 MG TABLET (FOR DETOX USE ONLY) PO ONE (10:00)
[2018-07-12] MEDS: PRENATAL VITAMINS W/ FOLIC ACID TABLET (FP) PO SCH (10:03)
[2018-07-12] MEDS: cloNIDine HCL 0.1 MG TABLET PO SCH ×2 (10:04→22:09)
[2018-07-12] MEDS: NICOTINE 21 MG/24 HOURS TOPICAL PATCH TD SCH (10:04)
--- NOTE | 2018-07-12 10:06 | PN ---
S CIWA - CIWA Score Nausea/Vomitin Muscle Tremors: 3 Anxiety: 3 Agitation: 2 Paroxysmal Sweats: 1-Minimal Palms Moist Orientation: 0-Oriented Tacttile Disturbances: 1-Very Mild Itch/Numbness Auditory Disturbances: 1-Very Mild Visual Disturbances: 0-None Headache: 2-Mild CIWA-Ar Total Score: 16 BHS Progress Note (SOAP) Subjective: alert,irritable,anxious,interrupted sleep,tremor,pain in the body Objective: 07/12/18 10:05 Vital Signs Temperature 97.3 F L 07/12/18 09:03 Pulse Rate 63 07/12/18 09:03 Respiratory Rate 18 07/12/18 09:03 Blood Pressure 103/67 07/12/18 09:03 O2 Sat by Pulse Oximetry (%) 07/12/18 10:05 Laboratory Last Values WBC 5.2 K/mm3 (4.0-10.0) 07/11/18 06:00 RBC 4.25 M/mm3 (4.00-5.60) 07/11/18 06:00 Hgb 13.2 GM/dL (11.7-16.9) 07/11/18 06:00 Hct 38.4 % (35.4-49) 07/11/18 06:00 MCV 90.4 fl (80-96) 07/11/18 06:00 MCH 31.1 pg (25.7-33.7) 07/11/18 06:00 MCHC 34.5 g/dl (32.0-35.9) 07/11/18 06:00 RDW 14.1 % (11.9-15.9) 07/11/18 06:00 Plt Count 66 K/MM3 (134-434) L 07/11/18 06:00 MPV 10.0 fl (7.5-11.1) 07/11/18 06:00 Sodium 142 mmol/L (136-145) 07/11/18 06:00 Potassium 3.9 mmol/L (3.5-5.1) 07/11/18 06:00 Chloride 105 mmol/L (98-107) 07/11/18 06:00 Carbon Dioxide 26 mmol/L (21-32) 07/11/18 06:00 Anion Gap 11 MMOL/L (8-16) 07/11/18 06:00 BUN 14 mg/dL (7-18) 07/11/18 06:00 Creatinine 0.8 mg/dL (0.7-1.3) 07/11/18 06:00 Creat Clearance w eGFR > 60 (>60) 07/11/18 06:00 Random Glucose 87 mg/dL (74-106) 07/11/18 06:00 Calcium 8.9 mg/dL (8.5-10.1) 07/11/18 06:00 Total Bilirubin 0.9 mg/dL (0.2-1.0) 07/11/18 06:00 AST 81 U/L (15-37) H 07/11/18 06:00 ALT 73 U/L (12-78) 07/11/18 06:00 Alkaline Phosphatase 73 U/L (45-117) 07/11/18 06:00 Total Protein 7.4 g/dl (6.4-8.2) 07/11/18 06:00 Albumin 3.3 g/dl (3.4-5.0) L 07/11/18 06:00 Urine Color Yellow 07/10/18 23:00 Urine Appearance Clear 07/10/18 23:00 Urine pH 5.0 (5.0-8.0) 07/10/18 23:00 Ur Specific [place] 1.019 (1.001-1.035) 07/10/18 23:00 Urine Protein Negative (NEGATIVE) 07/10/18 23:00 Urine Glucose (UA) Negative (NEGATIVE) 07/10/18 23:00 Urine Ketones Negative (NEGATIVE) 07/10/18 23:00 Urine Blood Negative (NEGATIVE) 07/10/18 23:00 Urine Nitrite Negative (NEGATIVE) 07/10/18 23:00 Urine Bilirubin Negative (<2.0 mg/dL) 07/10/18 23:00 Urine Urobilinogen Negative mg/dL (0.2-1.0) 07/10/18 23:00 Ur Leukocyte Esterase Negative (NEGATIVE) 07/10/18 23:00 Assessment: 07/12/18 10:05 withdrawal symptom Plan: continue detox
[2018-07-12] MEDS: THIAMINE HCL 100 MG TABLET (FP) PO SCH (22:09)
[2018-07-12] MEDS: diazePAM 5 MG TABLET PO PRN (22:09)
[2018-07-13] MEDS ORDERED: METHADONE HCL 5 MG TABLET (FOR DETOX USE ONLY) PO ONE (10:00)
[2018-07-13] MEDS: cloNIDine HCL 0.1 MG TABLET PO SCH ×2 (10:35→22:06)
[2018-07-13] MEDS: PRENATAL VITAMINS W/ FOLIC ACID TABLET (FP) PO SCH (10:35)
[2018-07-13] MEDS: NICOTINE 21 MG/24 HOURS TOPICAL PATCH TD SCH (10:36)
[2018-07-13] MEDS: diazePAM 5 MG TABLET PO PRN (11:06)
--- NOTE | 2018-07-13 13:48 | PN ---
S Progress Note (SOAP) Subjective: alert,irritable,anxious,interrupted sleep Objective: 07/13/18 13:47 Vital Signs Temperature 97.9 F 07/13/18 13:21 Pulse Rate 63 07/13/18 13:21 Respiratory Rate 18 07/13/18 13:21 Blood Pressure 121/77 07/13/18 13:21 O2 Sat by Pulse Oximetry (%) Assessment: 07/13/18 13:47 withdrawal symptom Plan: continue detox
[2018-07-13] MEDS: THIAMINE HCL 100 MG TABLET (FP) PO SCH (22:06)
[2018-07-13] MEDS: MELATONIN 5 MG TABLETS PO PRN (22:07)
[2018-07-14] MEDS ORDERED: METHADONE HCL 10 MG TABLET (FOR DETOX USE ONLY) PO ONE (10:00)
[2018-07-14] MEDS: PRENATAL VITAMINS W/ FOLIC ACID TABLET (FP) PO SCH (10:24)
[2018-07-14] MEDS: NICOTINE 21 MG/24 HOURS TOPICAL PATCH TD SCH (10:24)
[2018-07-14] MEDS: cloNIDine HCL 0.1 MG TABLET PO SCH ×2 (10:25→22:37)
[2018-07-14] MEDS: IBUPROFEN 400 MG TABLET (FP) PO PRN (10:26)
--- NOTE | 2018-07-14 12:03 | PN ---
S Progress Note (SOAP) Subjective: alert,irritable,interrupted sleep Objective: 07/14/18 12:02 Vital Signs Temperature 98.1 F 07/14/18 11:24 Pulse Rate 77 07/14/18 11:24 Respiratory Rate 20 07/14/18 11:24 Blood Pressure 127/83 07/14/18 11:24 O2 Sat by Pulse Oximetry (%) Assessment: 07/14/18 12:02 withdrawal symptom Plan: continue detox,discharge in am
--- NOTE | 2018-07-14 16:20 | CONSULT ---
[facility] Psychiatric Consult - Data Date of interview: 07/14/18 Admission source: [facility] Identifying data: Patient is a 48 year old male, , father of one, unemployed (denies receiving financial assistance) and is currently homeless. This is one of multiple admissions for patient. Pt. admitted for opiate and cocaine dependence. Substance Abuse History: Smoking Cessation. Smoking history: Current every day smoker. Have you smoked in the past 12 months: Yes. Aproximately how many cigarettes per day: 20. Hx Chewing Tobacco Use: No. Initiated information on smoking cessation: Yes. 'Breaking Loose' booklet given: 07/10/18. - Substance & Tx. History. Hx Alcohol Use: No. Hx Substance Use: Yes. Substance Use Type : Cocaine, Heroin. Hx Substance Use Treatment: Yes ([facility]). - Substances Abused. Heroin. Route: Injection. Frequency: Daily. Amount used: 15-20 BAGS. Age of first use: 15. Date of Last Use: 07/09/18. Cocaine. Route: Injection. Frequency: Daily. Amount used: 2 GRAMS. Age of first use: 15. Date of Last Use: 07/09/18 Medical History: Hep C Psychiatric History: Patient denies h/o psychiatric hospitalization, outpatient care, and suicide attempt. Pt. reports poor sleep. Physical/Sexual Abuse/Trauma History: denies. Mental Status Exam - Mental Status Exam Alert and Oriented to: Time, Place, Person Cognitive Function: Good Patient Appearance: Well Groomed Mood: Euthymic Affect: Mood Congruent Patient Behavior: Appropriate, Cooperative Speech Pattern: Clear, Appropriate Voice Loudness: Normal Thought Process: Intact, Goal Oriented Thought Disorder: Not Present Hallucinations: Denies Suicidal Ideation: Denies Homicidal Ideation: Denies Insight/Judgement: Poor Sleep: Poorly Appetite: Fair Muscle strength/Tone: Normal Gait/Station: Normal Psychiatric Findings - Problem List ([place] 1, 2,3) (1) Substance-induced sleep disorder Current Visit: Yes Status: Acute (2) Cocaine dependence Current Visit: Yes Status: Active (3) Cannabis dependence Current Visit: Yes Status: Chronic (4) Opioid dependence with withdrawal Current Visit: Yes Status: Acute - Initial Treatment Plan Initial Treatment Plan: Psychoeducation provided. Detoxification in progress. Melatonin to be increased to 8mg. Verbal consent given.
[2018-07-14] MEDS ORDERED: MELATONIN 5 MG, MELATONIN 3 MG PO PRN (16:38)
[2018-07-14 21:56] VITALS: TEMP 97.7
[2018-07-14] MEDS ORDERED: MELATONIN 5 MG TABLETS PO PRN (22:00)
[2018-07-14] MEDS: THIAMINE HCL 100 MG TABLET (FP) PO SCH (22:37)
[2018-07-15] MEDS ORDERED: METHADONE HCL 5 MG TABLET (FOR DETOX USE ONLY) PO ONE (06:00)
[2018-07-15 06:54] VITALS: BP 141/88; PULSE 61
--- NOTE | 2018-07-15 11:21 | DS ---
[facility] Detox Discharge Summary Admission Date: 07/10/18 Discharge Date: 07/15/18 - History Present History: Opioid Dependence Additional Comments: patient left the unit around 6 am today discharge summery based on operations supervisor 2nd shift RN report and chart review - Physical Exam Results Vital Signs: Vital Signs Temperature 97.7 F 07/15/18 06:54 Pulse Rate 61 07/15/18 06:54 Respiratory Rate 18 07/15/18 06:54 Blood Pressure 141/88 07/15/18 06:54 O2 Sat by Pulse Oximetry (%) Pertinent Admission Physical Exam Findings: withdrawal sx Vital Signs Temperature 97.7 F 07/15/18 06:54 Pulse Rate 61 07/15/18 06:54 Respiratory Rate 18 07/15/18 06:54 Blood Pressure 141/88 07/15/18 06:54 O2 Sat by Pulse Oximetry (%) Laboratory Last Values WBC 5.2 K/mm3 (4.0-10.0) 07/11/18 06:00 RBC 4.25 M/mm3 (4.00-5.60) 07/11/18 06:00 Hgb 13.2 GM/dL (11.7-16.9) 07/11/18 06:00 Hct 38.4 % (35.4-49) 07/11/18 06:00 MCV 90.4 fl (80-96) 07/11/18 06:00 MCH 31.1 pg (25.7-33.7) 07/11/18 06:00 MCHC 34.5 g/dl (32.0-35.9) 07/11/18 06:00 RDW 14.1 % (11.9-15.9) 07/11/18 06:00 Plt Count 66 K/MM3 (134-434) L 07/11/18 06:00 MPV 10.0 fl (7.5-11.1) 07/11/18 06:00 Sodium 142 mmol/L (136-145) 07/11/18 06:00 Potassium 3.9 mmol/L (3.5-5.1) 07/11/18 06:00 Chloride 105 mmol/L (98-107) 07/11/18 06:00 Carbon Dioxide 26 mmol/L (21-32) 07/11/18 06:00 Anion Gap 11 MMOL/L (8-16) 07/11/18 06:00 BUN 14 mg/dL (7-18) 07/11/18 06:00 Creatinine 0.8 mg/dL (0.7-1.3) 07/11/18 06:00 Creat Clearance w eGFR > 60 (>60) 07/11/18 06:00 Random Glucose 87 mg/dL (74-106) 07/11/18 06:00 Calcium 8.9 mg/dL (8.5-10.1) 07/11/18 06:00 Total Bilirubin 0.9 mg/dL (0.2-1.0) 07/11/18 06:00 AST 81 U/L (15-37) H 07/11/18 06:00 ALT 73 U/L (12-78) 07/11/18 06:00 Alkaline Phosphatase 73 U/L (45-117) 07/11/18 06:00 Total Protein 7.4 g/dl (6.4-8.2) 07/11/18 06:00 Albumin 3.3 g/dl (3.4-5.0) L 07/11/18 06:00 Urine Color Yellow 07/10/18 23:00 Urine Appearance Clear 07/10/18 23:00 Urine pH 5.0 (5.0-8.0) 07/10/18 23:00 Ur Specific [place] 1.019 (1.001-1.035) 07/10/18 23:00 Urine Protein Negative (NEGATIVE) 07/10/18 23:00 Urine Glucose (UA) Negative (NEGATIVE) 07/10/18 23:00 Urine Ketones Negative (NEGATIVE) 07/10/18 23:00 Urine Blood Negative (NEGATIVE) 07/10/18 23:00 Urine Nitrite Negative (NEGATIVE) 07/10/18 23:00 Urine Bilirubin Negative (<2.0 mg/dL) 07/10/18 23:00 Urine Urobilinogen Negative mg/dL (0.2-1.0) 07/10/18 23:00 Ur Leukocyte Esterase Negative (NEGATIVE) 07/10/18 23:00 RPR Titer Nonreactive (NONREACTIVE) 07/11/18 06:00 lab noted - Treatment Hospital Course: Detox Protocol Followed, Detoxed Safely, Responded well, Discharged Condition Good, Rehab Referral Accepted Patient has Accepted a Rehab Referral to: [facility] - Medication Discharge Medications: Ambulatory Orders NK [No Known Home Medication] 05/22/18 - Diagnosis (1) Hepatitis C Status: Resolved Qualifiers: Viral hepatitis chronicity: unspecified Hepatic coma status: without hepatic coma Qualified Code(s): B19.20 - Unspecified viral hepatitis C without hepatic coma (2) Nicotine dependence with withdrawal Status: Acute Qualifiers: Nicotine product type: cigarettes Qualified Code(s): F17.213 - Nicotine dependence, cigarettes, with withdrawal (3) Opioid dependence with withdrawal Status: Acute - AMA Did Patient Leave Against Medical Advice: No
== END 2018-07-15 06:45 | disposition home or self-care (01) | DRG 773 ==
LOC: YASAS 10:23 → Y6N 13:30
PROVIDERS: ADMIT Surgery; ATTEND Surgery
PROC: HZ2ZZZZ Detoxification Services for Substance Abuse Treatment (ICD-10-PCS; principal; 2018-07-10)
DX: F11.23 Opioid dependence with withdrawal (principal); F14.20 Cocaine dependence, uncomplicated; F12.20 Cannabis dependence, uncomplicated; F17.213 Nicotine dependence, cigarettes, with withdrawal; F19.282 Other psychoactive substance dependence with psychoactive substance-induced sleep disorder; M54.5 Low back pain; G89.29 Other chronic pain
CPT/HCPCS: 36415; 80053; 81003; 85027; 86593; 93005; 93010; J0735

== ENCOUNTER 2019-04-10 18:12 | Inpatient (IN) | payer OTHER ==
[2019-04-10 22:28] VITALS: BMI 30.1
--- NOTE | 2019-04-10 23:59 | HP ---
COWS - Scale Resting Pulse: 0= ID 80 or Below Sweatin=Flushed/Facial Moisture Restless Observation: 1= Difficult to Sit Still Pupil Size: 1= Pupils >than Normal Bone or Joint Aches: 4=Acute Joint/Muscle Pain Runny Nose/ Eye Tearin= Runny Nose/Eyes GI Upset > 30mins: 1= Stomach Cramp Tremor Observation: 4= Gross Tremor/Twitching Yawning Observation: 0= None Anxiety or Irritability: 0= None Goose Flesh Skin: 3=Piloerection COWS Score: 18 CIWA Score - Admission Criteria [facility] Guidelines: Admission for Medically Managed Detox: Requires at least one of the followin. CIWA greater than 12 2. Seizures within the past 24 hours 3. Delirium tremens within the past 24 hours 4. Hallucinations within the past 24 hours 5. Acute intervention needed for co occurring medical disorder 6. Acute intervention needed for co occurring psychiatric disorder 7. Severe withdrawal that cannot be handled at a lower level of care (continued vomiting, continued diarrhea, abnormal vital signs) requiring intravenous medication and/or fluids 8. Admission ROS [facility] Chief Complaint: Seeking admission to detox from heroin Allergies/Adverse Reactions: Allergies Allergy/AdvReac Type Severity Reaction Status Date / Time No Known Allergies Allergy Verified 07/10/18 13:19 History of Present Illness: 49 years old male with 20 years of heroin dependence is seeking admission to detox. Patient has been in previous deox and reports insignificant period of sobriety. He has medical history of Hep C, low back pain and depression. Denies suicidal ideation at this time Exam Limitations: No Limitations - Ebola screening Have you traveled outside of the country in the last 21 days: No (N) Have you had contact with anyone from an Ebola affected area: No Do you have a fever: No - Review of Systems Constitutional: Chills, Loss of Appetite, Changes in sleep, Weakness Respiratory: reports: No Symptoms reported Cardiac: reports: No Symptoms Reported GI: reports: Nausea, Poor Appetite, Poor Fluid Intake, Abdominal cramping : reports: No Symptoms Reported Musculoskeletal: reports: Back Pain, Joint Pain, Muscle Pain Integumentary: reports: Dryness, Flushing Neuro: reports: Headache, Tremors Endocrine: reports: No Symptoms Reported Hematology: reports: No Symptoms Reported Psychiatric: reports: Anxious Other Systems: Reviewed and Negative Patient History - Patient Medical History Hx Anemia: No Hx Asthma: No Hx Chronic Obstructive Pulmonary Disease (COPD): No Hx Cancer: No Hx Cardiac Disorders: No Hx Congestive Heart Failure: No Hx Hypertension: No Hx Hypercholesterolemia: No Hx Pacemaker: No HX Cerebrovascular Accident: No Hx Seizures: No Hx Dementia: No Hx Diabetes: No Hx Gastrointestinal Disorders: No Hx Liver Disease: No Hx Genitourinary Disorders: No Hx Sexually Transmitted Disorders: No Hx Renal Disease (ESRD): No Hx Thyroid Disease: No Hx Human Immunodeficiency Virus (HIV): No Hx Hepatitis C: Yes (No medical tx. ) Hx Depression: Yes (Not on medication) Hx Suicide Attempt: No Hx Bipolar Disorder: No Hx Schizophrenia: No - Patient Surgical History Past Surgical History: Yes Hx Neurologic Surgery: No Hx Cataract Extraction: No Hx Cardiac Surgery: No Hx Lung Surgery: No Hx Breast Surgery: No Hx Breast Biopsy: No Hx Abdominal Surgery: No Hx Appendectomy: No Hx Cholecystectomy: No Hx Genitourinary Surgery: No Hx Section: No Hx Orthopedic Surgery: Yes (left wrist/forearm) Anesthesia Reaction: No - PPD History Previous Implant?: Yes Documented Results: Positive w/proof Implanted On Prior [facility] Admission?: Yes Date: 05/24/18 Results: 0MM PPD to be Administered?: No - Reproductive History Patient is a Female of Child Bearing Age (11 -55 yrs old): No (Male) - Smoking Cessation Smoking history: Current every day smoker Have you smoked in the past 12 months: Yes Aproximately how many cigarettes per day: 20 Hx Chewing Tobacco Use: No Initiated information on smoking cessation: Yes 'Breaking Loose' booklet given: 04/11/19 - Substance & Tx. History Hx Alcohol Use: No Hx Substance Use: Yes Substance Use Type: Cocaine, Heroin, Marijuana, Opiates Hx Substance Use Treatment: Yes ([facility]) - Substances abused Heroin Substance route: Injection Frequency: Daily Amount used: 10 bags/day Age of first use: 15 Date of last use: 04/09/19 Family Disease History - Family Disease History Family Disease History: Other: Mother (htn) Admission Physical Exam BHS - Vital Signs Vital Signs: Vital Signs - 24 hr 04/10/19 22:24 Temperature 97.8 F Pulse Rate 60 Respiratory 18 Rate Blood Pressure 129/79 - Physical General Appearance: Yes: Moderate Distress HEENTM: Yes: EOMI, Normal ENT Inspection, Normal Voice Respiratory: Yes: Lungs Clear, Normal Breath Sounds, No Respiratory Distress Neck: Yes: Supple Breast: Yes: Breast Exam Deferred Cardiology: Yes: Regular Rhythm, Regular Rate Abdominal: Yes: Normal Bowel Sounds Genitourinary: Yes: Within Normal Limits Back: Yes: Normal Inspection Musculoskeletal: Yes: Within Normal Limits Extremities: Yes: Normal Inspection Neurological: Yes: Within Normal Limits Integumentary: Yes: Warm Lymphatic: Yes: Within Normal Limits - Diagnostic (1) Cocaine dependence Current Visit: Yes Status: Chronic (2) depression Current Visit: Yes Status: Chronic (3) Bilateral edema of lower extremity Current Visit: Yes Status: Chronic (4) Cocaine dependence, uncomplicated Current Visit: Yes Status: Chronic (5) Nicotine dependence with withdrawal Current Visit: Yes Status: Chronic Qualifiers: Nicotine product type: cigarettes Qualified Code(s): F17.213 - Nicotine dependence, cigarettes, with withdrawal (6) Opioid dependence with withdrawal Current Visit: Yes Status: Acute (7) Cannabis dependence Current Visit: No Status: Chronic (8) Low back pain Current Visit: Yes Status: Chronic Qualifiers: Chronicity: chronic Back pain laterality: unspecified Sciatica presence: without sciatica Qualified Code(s): M54.5 - Low back pain; G89.29 - Other chronic pain (9) Hepatitis C Current Visit: No Status: Resolved Qualifiers: Viral hepatitis chronicity: unspecified Hepatic coma status: without hepatic coma Qualified Code(s): B19.20 - Unspecified viral hepatitis C without hepatic coma Cleared for Admission S - Detox or Rehab [facility] Level of Care: Medically Managed Detox Regimen/Protocol: Methadone Breathalyzer - Breathalyzer Breathalyzer: 0 Urine Drug Screen - Test Device Lot number: [id number] Expiration date: 03/13/20 - Control Is test valid?: Yes - Results Drug screen NEGATIVE: No Urine drug screen results: THC-Marijuana, JOSELITO-Cocaine, MOP-Opiates, MTD- Methadone Inpatient Rehab Admission - Rehab Decision to Admit Inpatient rehab admission?: No
[2019-04-11] MEDS ORDERED: MAGNESIUM HYDROX 2400MG/30ML ORAL SUSPENSION 30 ML CUP PO PRN (00:11)
[2019-04-11] MEDS ORDERED: ACETAMINOPHEN 325 MG TABLET (FP) PO PRN ×2 (00:11)
[2019-04-11] MEDS ORDERED: MAGNESIUM CITRATE 300 ML BOTTLE PO PRN (00:11)
[2019-04-11] MEDS ORDERED: NICOTINE POLACRILEX 2 MG GUM BUC PRN (00:11)
[2019-04-11] MEDS ORDERED: IBUPROFEN 400 MG TABLET (FP) PO PRN (00:11)
[2019-04-11] MEDS ORDERED: MAG HYDROX/AL HYDROX/SIMETH 30 ML UNIT-DOSE CUP PO PRN (00:11)
[2019-04-11] MEDS ORDERED: MENTHOL/PHENOL 1 EACH UD MM PRN (00:11)
[2019-04-11] MEDS ORDERED: BISMUTH SUBSALICYLATE 524 MG/30 ML UD PO PRN (00:11)
[2019-04-11] MEDS ORDERED: BACITRACIN 15 GM TUBE TOPICAL OINTMENT TP SCH (10:00)
[2019-04-11] MEDS ORDERED: METHADONE HCL 10 MG TABLET (FOR DETOX USE ONLY) PO ONE ×2 (10:00→23:00)
[2019-04-11] MEDS: PRENATAL VITAMINS W/ FOLIC ACID TABLET (FP) PO SCH (10:41)
[2019-04-11] MEDS: hydrOXYzine PAMOATE 25 MG CAPSULE (FP) PO PRN ×2 (10:41→22:13)
[2019-04-11] MEDS: NICOTINE 14 MG/24 HOURS TOPICAL PATCH TD SCH (10:41)
[2019-04-11] MEDS: METHOCARBAMOL 500 MG TABLET PO PRN ×2 (10:41→22:13)
--- NOTE | 2019-04-11 11:33 | PN ---
BHS COWS - Scale Resting Pulse: 0= [place] 80 or Below Sweatin= Chills/Flushing Restless Observation: 1= Difficult to Sit Still Pupil Size: 1= Pupils >than Normal Bone or Joint Aches: 1= Mild Discomfort Runny Nose/ Eye Tearin= Nasal Congestion GI Upset > 30mins: 1= Stomach Cramp Tremor Observation of Outstretched Hands: 2= Slight Tremor Visible Yawning Observation: 1= 1-2x During Session Anxiety or Irritability: 2=Irritable/Anxious Goose Flesh Skin: 3=Piloerection COWS Score: 14 BHS Progress Note (SOAP) Subjective: feeling better after 30 mg of methadone resting on bed muscle cramping Objective: 04/11/19 11:32 Vital Signs Temperature 96.7 F L 04/11/19 09:17 Pulse Rate 60 04/11/19 09:17 Respiratory Rate 18 04/11/19 09:17 Blood Pressure 107/62 04/11/19 09:17 O2 Sat by Pulse Oximetry (%) lab pending ordered 04/12/19 Assessment: 04/11/19 11:33 opiate withdrawal sx Plan: continue detox
[2019-04-11] MEDS ORDERED: PNEUMOCOCCAL 23 VACCINE 0.5 ML VIAL IM ONE (12:00)
[2019-04-11] MEDS ORDERED: PNEUMOC 13-VAL CONJ-DIP CRM/PF 0.5 ML DISP.SYRIN IM ONE (12:00)
[2019-04-11] MEDS: BACITRACIN 15 GM TUBE TOPICAL OINTMENT TP SCH ×2 (14:23→22:23)
[2019-04-11] MEDS: MELATONIN 5 MG TABLETS PO PRN (22:11)
[2019-04-11] MEDS: THIAMINE HCL 100 MG TABLET (FP) PO SCH (22:11)
[2019-04-11] MEDS: cloNIDine HCL 0.1 MG TABLET PO PRN (22:13)
[2019-04-12] MEDS: PRENATAL VITAMINS W/ FOLIC ACID TABLET (FP) PO SCH (09:32)
[2019-04-12] MEDS: hydrOXYzine PAMOATE 25 MG CAPSULE (FP) PO PRN (09:32)
[2019-04-12] MEDS: METHOCARBAMOL 500 MG TABLET PO PRN (09:32)
[2019-04-12] MEDS: BACITRACIN 15 GM TUBE TOPICAL OINTMENT TP SCH ×2 (09:33→22:09)
[2019-04-12] MEDS ORDERED: METHADONE HCL 5 MG TABLET (FOR DETOX USE ONLY) PO ONE (10:00)
[2019-04-12] MEDS ORDERED: METHADONE HCL 10 MG TABLET (FOR DETOX USE ONLY) PO ONE (10:00)
[2019-04-12] MEDS: NICOTINE 14 MG/24 HOURS TOPICAL PATCH TD SCH (10:17)
--- NOTE | 2019-04-12 12:11 | PN ---
BHS COWS - Scale Resting Pulse: 0= [place] 80 or Below Sweatin= Chills/Flushing Restless Observation: 1= Difficult to Sit Still Pupil Size: 0= Normal to Room Light Bone or Joint Aches: 1= Mild Discomfort Runny Nose/ Eye Tearin= Nasal Congestion GI Upset > 30mins: 2= Nausea/Diarrhea Tremor Observation of Outstretched Hands: 2= Slight Tremor Visible Yawning Observation: 1= 1-2x During Session Anxiety or Irritability: 2=Irritable/Anxious Goose Flesh Skin: 0=Smooth Skin COWS Score: 11 BHS Progress Note (SOAP) Subjective: body aches moderate food and fluid toleration Objective: 04/12/19 12:40 Vital Signs Temperature 97.5 F L 04/12/19 09:22 Pulse Rate 64 04/12/19 09:22 Respiratory Rate 18 04/12/19 09:22 Blood Pressure 102/65 04/12/19 09:22 O2 Sat by Pulse Oximetry (%) 04/12/19 12:44 can not locate lab order as well as lab result reorder admission lab Assessment: 04/12/19 12:44 opiate withdrawal sx Plan: continue detox
[2019-04-12] MEDS: THIAMINE HCL 100 MG TABLET (FP) PO SCH (22:08)
[2019-04-12] MEDS: cloNIDine HCL 0.1 MG TABLET PO PRN (22:08)
[2019-04-12] MEDS: MELATONIN 5 MG TABLETS PO PRN (22:10)
[2019-04-13] MEDS ORDERED: TRIMETHOBENZAMIDE HCL 300 MG CAPSULE PO PRN (09:40)
[2019-04-13] MEDS ORDERED: METHADONE (DETOX) 10 MG, METHADONE (DETOX) 5 MG PO ONE (10:00)
[2019-04-13] MEDS ORDERED: METHADONE HCL 10 MG TABLET (FOR DETOX USE ONLY) PO ONE (10:00)
[2019-04-13] MEDS ORDERED: METHADONE HCL 10 MG TABLET (FOR DETOX USE ONLY) ONE (10:30)
[2019-04-13] MEDS: BACITRACIN 15 GM TUBE TOPICAL OINTMENT TP SCH ×2 (10:30→22:04)
[2019-04-13] MEDS: METHOCARBAMOL 500 MG TABLET PO PRN ×2 (10:30→22:06)
[2019-04-13] MEDS: hydrOXYzine PAMOATE 25 MG CAPSULE (FP) PO PRN ×2 (10:30→22:04)
[2019-04-13] MEDS ORDERED: METHADONE HCL 5 MG TABLET (FOR DETOX USE ONLY) ONE (10:30)
[2019-04-13] MEDS: PRENATAL VITAMINS W/ FOLIC ACID TABLET (FP) PO SCH (10:31)
[2019-04-13] MEDS: NICOTINE 14 MG/24 HOURS TOPICAL PATCH TD SCH (10:31)
[2019-04-13 12:10] LABS: ALBUMIN 3.1 g/dl (3.4-5.0); BILIRUBIN,TOTAL 0.6 mg/dL (0.2-1); CALCIUM 8.3 mg/dL (8.5-10.1); CREATININE 0.7 mg/dL (0.55-1.3); POTASSIUM 3.5 mmol/L (3.5-5.1); TOT PROT 6.5 g/dl (6.4-8.2)
[2019-04-13 12:48] LABS: HEMATOCRIT 38.1 % (35.4-49); HEMOGLOBIN 13.5 GM/dL (11.7-16.9); MCH 32.5 pg (25.7-33.7); MCHC 35.5 g/dl (32.0-35.9); MEAN CELL VOLUME 91.7 fl (80-96); MEAN PLT VOLUME 10.2 fl (7.5-11.1); PLATELET COUNT 72 K/MM3 (134-434); RBC 4.15 M/mm3 (4.00-5.60); RDW 13.2 % (11.9-15.9); WHITE BLOOD COUNT 3.3 K/mm3 (4.0-10.0)
--- NOTE | 2019-04-13 17:09 | PN ---
S COWS - Scale Resting Pulse: 0= [place] 80 or Below Sweatin=Flushed/Facial Moisture Restless Observation: 1= Difficult to Sit Still Pupil Size: 0= Normal to Room Light Bone or Joint Aches: 2= Severe Diffuse Aches Runny Nose/ Eye Tearin= None GI Upset > 30mins: 3= Vomiting/Diarrhea Tremor Observation of Outstretched Hands: 0= None Yawning Observation: 1= 1-2x During Session Anxiety or Irritability: 2=Irritable/Anxious Goose Flesh Skin: 3=Piloerection COWS Score: 14 BHS Progress Note (SOAP) Subjective: Sweating, Body Aches, Vomiting, Diarrhea. Objective: PATIENT A & O X 3, OBSERVED AMBULATING ON UNIT UNASSISTED. IN NO ACUTE DISTRESS. 04/13/19 17:04 Vital Signs Temperature 97.5 F L 04/13/19 09:34 Pulse Rate 58 L 04/13/19 09:34 Respiratory Rate 18 04/13/19 09:34 Blood Pressure 121/76 04/13/19 09:34 O2 Sat by Pulse Oximetry (%) Laboratory Tests 04/13/19 04/13/19 04/13/19 09:00 09:00 09:00 WBC 3.3 L RBC 4.15 Hgb 13.5 Hct 38.1 MCV 91.7 MCH 32.5 MCHC 35.5 RDW 13.2 Plt Count 72 L MPV 10.2 Sodium 139 Potassium 3.5 Chloride 108 H Carbon Dioxide 25 Anion Gap 5 L BUN 10 Creatinine 0.7 Est GFR (CKD-EPI)AfAm 128.43 Est GFR (CKD-EPI)NonAf 110.81 Random Glucose 120 H Calcium 8.3 L Total Bilirubin 0.6 AST 79 H ALT 83 H Alkaline Phosphatase 72 Total Protein 6.5 Albumin 3.1 L RPR Titer Nonreactive LABS NOTED. PATIENT HAS HAD LOW PLATELET LEVELS ON PREVIOUS ADMISSIONS. 04/13/19 17:06 Assessment: 04/13/19 17:06 WITHDRAWAL SYMPTOMS. LEUKOPENIA. THROMBOCYTOPENIA. Plan: CONTINUE DETOX. INCREASE DAILY PO FLUID / WATER INTAKE. DUE TO SEVERITY OF WITHDRAWAL SYMPTOMS REPORTED BY PATIENT AT THIS TIME, DETOX MEDICATION REGIMEN (METHADONE) MODIFIED (WITH PATIENT'S VERBAL CONSENT) TO BE INCREASED BY ONE DAY IN LENGTH (15 MG PO TODAY, 10 MG PO TOMORROW, AND 5 MG PO ON 04/15/2019) WITH PATIENT SCHEDULED TO BE DISCHARGED FROM DETOX ON 04/15/2019.
[2019-04-13] MEDS: THIAMINE HCL 100 MG TABLET (FP) PO SCH (22:04)
[2019-04-13] MEDS: MELATONIN 5 MG TABLETS PO PRN (22:05)
[2019-04-14] MEDS ORDERED: METHADONE HCL 5 MG TABLET (FOR DETOX USE ONLY) PO ONE (06:00)
[2019-04-14] MEDS ORDERED: METHADONE HCL 10 MG TABLET (FOR DETOX USE ONLY) PO ONE (10:00)
[2019-04-14] MEDS: BACITRACIN 15 GM TUBE TOPICAL OINTMENT TP SCH ×2 (10:08→22:21)
[2019-04-14] MEDS: NICOTINE 14 MG/24 HOURS TOPICAL PATCH TD SCH (10:08)
[2019-04-14] MEDS: PRENATAL VITAMINS W/ FOLIC ACID TABLET (FP) PO SCH (10:08)
[2019-04-14] MEDS: METHOCARBAMOL 500 MG TABLET PO PRN ×2 (10:10→22:23)
--- NOTE | 2019-04-14 16:56 | PN ---
BHS COWS - Scale Resting Pulse: 0= [place] 80 or Below Sweatin= Chills/Flushing Restless Observation: 1= Difficult to Sit Still Pupil Size: 0= Normal to Room Light Bone or Joint Aches: 2= Severe Diffuse Aches Runny Nose/ Eye Tearin= None GI Upset > 30mins: 2= Nausea/Diarrhea Tremor Observation of Outstretched Hands: 0= None Yawning Observation: 1= 1-2x During Session Anxiety or Irritability: 2=Irritable/Anxious Goose Flesh Skin: 0=Smooth Skin COWS Score: 9 BHS Progress Note (SOAP) Subjective: Sweating, Body Aches, Nausea. Patient Reports that Withdrawal / Detox Symptoms are Improving in General. Objective: PATIENT A & O X 3, OBSERVED AMBULATING ON UNIT UNASSISTED. IN NO ACUTE DISTRESS. 04/14/19 16:55 Vital Signs Temperature 98.6 F 04/14/19 13:46 Pulse Rate 78 04/14/19 13:46 Respiratory Rate 134 H 04/14/19 13:46 Blood Pressure 103/59 L 04/14/19 13:46 O2 Sat by Pulse Oximetry (%) Laboratory Tests 04/13/19 04/13/19 04/13/19 09:00 09:00 09:00 WBC 3.3 L RBC 4.15 Hgb 13.5 Hct 38.1 MCV 91.7 MCH 32.5 MCHC 35.5 RDW 13.2 Plt Count 72 L MPV 10.2 Sodium 139 Potassium 3.5 Chloride 108 H Carbon Dioxide 25 Anion Gap 5 L BUN 10 Creatinine 0.7 Est GFR (CKD-EPI)AfAm 128.43 Est GFR (CKD-EPI)NonAf 110.81 Random Glucose 120 H Calcium 8.3 L Total Bilirubin 0.6 AST 79 H ALT 83 H Alkaline Phosphatase 72 Total Protein 6.5 Albumin 3.1 L RPR Titer Nonreactive LABS NOTED. PATIENT HAS HAD ELEVATED AST AND ALT LEVELS ON PREVIOUS ADMISSIONS. 04/14/19 16:56 Assessment: 04/14/19 16:56 WITHDRAWAL SYMPTOMS. LEUKOPENIA. THROMBOCYTOPENIA. ELEVATED LIVER ENZYMES (AST ,ALT). Plan: CONTINUE DETOX. INCREASE DAILY PO FLUID / WATER INTAKE. PRN TIGAN PO FOR NAUSEA. PATIENT SCHEDULED FOR D/C TOMORROW.
[2019-04-14] MEDS: MELATONIN 5 MG TABLETS PO PRN (22:21)
[2019-04-14] MEDS: THIAMINE HCL 100 MG TABLET (FP) PO SCH (22:25)
[2019-04-15] MEDS ORDERED: METHADONE HCL 5 MG TABLET (FOR DETOX USE ONLY) PO ONE (06:00)
[2019-04-15 06:04] VITALS: BP 111/69; PULSE 58; TEMP 97.6
--- NOTE | 2019-04-15 11:33 | DS ---
[facility] Detox Discharge Summary Admission Date: 04/11/19 Discharge Date: 04/15/19 - History Additional Comments: Pt completed detox and for d/c today. 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
== END 2019-04-15 08:32 | disposition home or self-care (01) | DRG 773 ==
LOC: YASAS 18:12 → Y3N 04-11 06:46
PROVIDERS: ADMIT Surgery; ATTEND Surgery
PROC: HZ2ZZZZ Detoxification Services for Substance Abuse Treatment (ICD-10-PCS; principal; 2019-04-11)
DX: F11.23 Opioid dependence with withdrawal (principal); F14.20 Cocaine dependence, uncomplicated; F12.20 Cannabis dependence, uncomplicated; F17.210 Nicotine dependence, cigarettes, uncomplicated; F32.9 Major depressive disorder, single episode, unspecified; D69.6 Thrombocytopenia, unspecified; D72.819 Decreased white blood cell count, unspecified; R94.5 Abnormal results of liver function studies; R60.0 Localized edema; M54.5 Low back pain; G89.29 Other chronic pain
CPT/HCPCS: 36415; 80053; 85027; 86593; J0735

== ENCOUNTER 2021-05-20 10:45 | Inpatient (IN) | payer OTHER ==
[2021-05-20 11:21] VITALS: BMI 31.7
[2021-05-20] MEDS ORDERED: IBUPROFEN 400 MG TABLET (FP) PO PRN (15:33)
[2021-05-20] MEDS ORDERED: P-EPHED 60MG/TRIPROLIDI 2.5MG TABLET PO PRN (15:33)
[2021-05-20] MEDS ORDERED: MAG HYDROX/AL HYDROX/SIMETH 30 ML UNIT-DOSE CUP PO PRN (15:33)
[2021-05-20] MEDS ORDERED: MAGNESIUM CITRATE 300 ML BOTTLE PO PRN (15:33)
[2021-05-20] MEDS ORDERED: MAGNESIUM HYDROX 2400MG/30ML ORAL SUSPENSION 30 ML CUP PO PRN (15:33)
[2021-05-20] MEDS ORDERED: NICOTINE POLACRILEX 2 MG GUM BC PRN (15:33)
[2021-05-20] MEDS ORDERED: guaiFENesin 200 MG/10 ML 10 ML UNIT-DOSE CUPS PO PRN (15:33)
[2021-05-20] MEDS ORDERED: LOPERAMIDE HCL 2 MG CAPSULE PO PRN (15:33)
[2021-05-20] MEDS ORDERED: ACETAMINOPHEN 325 MG TABLET (FP) PO PRN (15:33)
[2021-05-20] MEDS: NICOTINE 7 MG/24 HOURS TOPICAL PATCH TD SCH (17:42)
[2021-05-20] MEDS ORDERED: TUBERCULIN PPD 5 TU/0.1ML VIAL ID ONE (17:45)
[2021-05-20] MEDS: hydrOXYzine PAMOATE 25 MG CAPSULE (FP) PO SCH ×2 (17:46→23:14)
[2021-05-20] MEDS: MELATONIN 5 MG TABLETS PO SCH (23:13)
[2021-05-20] MEDS: THIAMINE HCL 100 MG TABLET (FP) PO SCH (23:14)
[2021-05-21] MEDS: hydrOXYzine PAMOATE 25 MG CAPSULE (FP) PO SCH ×5 (06:54→21:05)
[2021-05-21] MEDS ORDERED: methaDONE HCL 10 MG TABLET ONE (09:05)
[2021-05-21] MEDS ORDERED: methaDONE HCL 40 MG DISPERSABLE TABLET ONE (09:05)
[2021-05-21] MEDS ORDERED: methaDONE 40 MG, methaDONE 20 MG PO ONE (10:00)
[2021-05-21] MEDS ORDERED: methaDONE HCL 10 MG TABLET PO ONE (10:00)
[2021-05-21] MEDS: PRENATAL VITAMINS W/ FOLIC ACID TABLET (FP) PO SCH (10:01)
[2021-05-21] MEDS: NICOTINE 7 MG/24 HOURS TOPICAL PATCH TD SCH (10:01)
[2021-05-21 10:51] LABS: HEMOGLOBIN 13.5 GM/dL (11.7-16.9); MCH 32.9 pg (25.7-33.7); MCHC 33.7 g/dl (32.0-35.9); MEAN CELL VOLUME 97.5 fl (80-96); MEAN PLT VOLUME 10.8 fl (7.5-11.1); PLATELET COUNT 58 10^3/uL (134-434); RDW 13.9 % (11.9-15.9); WHITE BLOOD COUNT 4.3 K/mm3 (4.0-10.0)
[2021-05-21 11:02] LABS: ALBUMIN 3.4 g/dl (3.4-5.0)
[2021-05-21 11:03] LABS: BLOOD UREA NITROGEN 17.6 mg/dL (7-18)
[2021-05-21 11:06] LABS: CREATININE 0.8 mg/dL (0.55-1.3)
[2021-05-21 11:07] LABS: BILIRUBIN,TOTAL 1.2 mg/dL (0.2-1); TOT PROT 7.6 g/dl (6.4-8.2)
[2021-05-21 17:29] LABS: PH,URINE 6.5 (5.0-8.0); URINE APPEARANCE CLEAR; URINE BILIRUBIN NEGATIVE (NEGATIVE); URINE COLOR YELLOW; URINE GLUCOSE (UA) NEGATIVE (NEGATIVE); URINE KETONE NEGATIVE (NEGATIVE); URINE LEUK ESTERASE NEGATIVE (NEGATIVE); URINE NITRITE NEGATIVE (NEGATIVE); URINE PROTEIN NEGATIVE (NEGATIVE)
[2021-05-21] MEDS: MELATONIN 5 MG TABLETS PO SCH (21:05)
[2021-05-21] MEDS: THIAMINE HCL 100 MG TABLET (FP) PO SCH (21:05)
[2021-05-22] MEDS ORDERED: methaDONE HCL 10 MG TABLET PO SCH (06:00)
[2021-05-22] MEDS ORDERED: methaDONE HCL 10 MG TABLET ONE (06:11)
[2021-05-22] MEDS ORDERED: methaDONE HCL 40 MG DISPERSABLE TABLET ONE (06:11)
[2021-05-22] MEDS: hydrOXYzine PAMOATE 25 MG CAPSULE (FP) PO SCH ×5 (06:44→21:49)
[2021-05-22] MEDS: methaDONE 40 MG, methaDONE 20 MG PO SCH (06:44)
[2021-05-22] MEDS: NICOTINE 7 MG/24 HOURS TOPICAL PATCH TD SCH (10:03)
[2021-05-22] MEDS: PRENATAL VITAMINS W/ FOLIC ACID TABLET (FP) PO SCH (10:04)
[2021-05-22] MEDS: MELATONIN 5 MG TABLETS PO SCH (21:49)
[2021-05-22] MEDS: THIAMINE HCL 100 MG TABLET (FP) PO SCH (21:49)
[2021-05-23] MEDS ORDERED: methaDONE HCL 10 MG TABLET ONE (06:25)
[2021-05-23] MEDS ORDERED: methaDONE HCL 40 MG DISPERSABLE TABLET ONE (06:25)
[2021-05-23] MEDS: methaDONE 40 MG, methaDONE 20 MG PO SCH (06:31)
[2021-05-23] MEDS: hydrOXYzine PAMOATE 25 MG CAPSULE (FP) PO SCH ×5 (06:32→21:40)
[2021-05-23] MEDS: NICOTINE 7 MG/24 HOURS TOPICAL PATCH TD SCH (10:13)
[2021-05-23] MEDS: PRENATAL VITAMINS W/ FOLIC ACID TABLET (FP) PO SCH (10:13)
[2021-05-23] MEDS: MELATONIN 5 MG TABLETS PO SCH (21:40)
[2021-05-23] MEDS: THIAMINE HCL 100 MG TABLET (FP) PO SCH (21:40)
[2021-05-24] MEDS ORDERED: methaDONE HCL 10 MG TABLET ONE (06:07)
[2021-05-24] MEDS ORDERED: methaDONE HCL 40 MG DISPERSABLE TABLET ONE (06:07)
[2021-05-24] MEDS: methaDONE 40 MG, methaDONE 20 MG PO SCH (06:46)
[2021-05-24] MEDS: hydrOXYzine PAMOATE 25 MG CAPSULE (FP) PO SCH ×5 (06:47→21:32)
[2021-05-24] MEDS: NICOTINE 7 MG/24 HOURS TOPICAL PATCH TD SCH (09:36)
[2021-05-24] MEDS: PRENATAL VITAMINS W/ FOLIC ACID TABLET (FP) PO SCH (09:36)
[2021-05-24] MEDS: MELATONIN 5 MG TABLETS PO SCH (21:32)
[2021-05-24] MEDS: THIAMINE HCL 100 MG TABLET (FP) PO SCH (21:32)
[2021-05-25] MEDS ORDERED: methaDONE HCL 40 MG DISPERSABLE TABLET ONE (06:21)
[2021-05-25] MEDS ORDERED: methaDONE HCL 10 MG TABLET ONE (06:21)
[2021-05-25] MEDS: methaDONE 40 MG, methaDONE 20 MG PO SCH (06:30)
[2021-05-25] MEDS: hydrOXYzine PAMOATE 25 MG CAPSULE (FP) PO SCH (06:31)
[2021-05-25] MEDS ORDERED: hydrOXYzine PAMOATE 25 MG CAPSULE (FP) PO PRN (08:33)
[2021-05-25] MEDS: NICOTINE 7 MG/24 HOURS TOPICAL PATCH TD SCH (09:59)
[2021-05-25] MEDS: PRENATAL VITAMINS W/ FOLIC ACID TABLET (FP) PO SCH (09:59)
[2021-05-25] MEDS: THIAMINE HCL 100 MG TABLET (FP) PO SCH (21:40)
[2021-05-25] MEDS: MELATONIN 5 MG TABLETS PO SCH (21:40)
[2021-05-26] MEDS ORDERED: methaDONE HCL 40 MG DISPERSABLE TABLET ONE (06:29)
[2021-05-26] MEDS ORDERED: methaDONE HCL 10 MG TABLET ONE (06:29)
[2021-05-26] MEDS: methaDONE 40 MG, methaDONE 20 MG PO SCH (06:30)
[2021-05-26] MEDS: NICOTINE 7 MG/24 HOURS TOPICAL PATCH TD SCH (10:03)
[2021-05-26] MEDS: PRENATAL VITAMINS W/ FOLIC ACID TABLET (FP) PO SCH (10:03)
[2021-05-26] MEDS: MELATONIN 5 MG TABLETS PO SCH (21:38)
[2021-05-26] MEDS: THIAMINE HCL 100 MG TABLET (FP) PO SCH (21:39)
[2021-05-27] MEDS ORDERED: methaDONE HCL 10 MG TABLET ONE (06:10)
[2021-05-27] MEDS ORDERED: methaDONE HCL 40 MG DISPERSABLE TABLET ONE (06:10)
[2021-05-27] MEDS: methaDONE 40 MG, methaDONE 20 MG PO SCH (06:15)
[2021-05-27 07:01] VITALS: BP 143/87; PULSE 61; TEMP 97.3
== END 2021-05-27 08:50 | disposition home or self-care (01) | DRG 772 ==
LOC: YASAS 10:45 → Y3E 15:12
PROVIDERS: ADMIT Allergy & Immunology; ATTEND Allergy & Immunology
PROC: HZ42ZZZ Group Counseling for Substance Abuse Treatment, Cognitive-Behavioral (ICD-10-PCS; principal; 2021-05-20)
DX: F10.20 Alcohol dependence, uncomplicated (principal); F11.20 Opioid dependence, uncomplicated; F14.20 Cocaine dependence, uncomplicated; F12.20 Cannabis dependence, uncomplicated; F17.210 Nicotine dependence, cigarettes, uncomplicated; F32.9 Major depressive disorder, single episode, unspecified; D69.6 Thrombocytopenia, unspecified; G47.00 Insomnia, unspecified; M54.5 Low back pain; G89.29 Other chronic pain; B18.2 Chronic viral hepatitis C; R60.0 Localized edema
CPT/HCPCS: 36415; 80053; 81003; 85027; 86780; C9803; U0003; U0005